=== PATIENT | male | born 1980 | race Caucasian/White ===

== ENCOUNTER 2020-10-12 21:32 | Emergency (ER) | payer OTHER ==
[~2020-10-12] VITALS: Ht 170.2 cm; Wt 52.2 kg
[2020-10-12 22:07] LABS: BASOPHILS % 0.3 % (0.0-1.0); EOSINOPHILS % 0.2 % (0.0-6.0); HEMATOCRIT 27.5 % (38.2-49.6); HEMOGLOBIN 9.1 g/dL (14.0-18.0); LYMPHOCYTES # (AUTO) 0.7 (1.0-3.2); LYMPHOCYTES % 6.7 % (18.0-39.1); MEAN CORPUSCULAR HEMOGLOBIN 29.8 pg (28-32); MEAN CORPUSCULAR HGB CONC 33.1 g/dL (31-35); MEAN CORPUSCULAR VOLUME 90.2 fL (81-99); MONOCYTES # (AUTO) 1.2 (0.2-0.8); MONOCYTES % 11.5 % (4.4-11.3); NEUTROPHILS # (AUTO) 8.3 (2.1-6.9); NEUTROPHILS % 80.7 % (38.7-80.0); PLATELET COUNT 262 x10e3/uL (140-360); RED BLOOD COUNT 3.05 x10e6/uL (4.3-5.7); RED CELL DISTRIBUTION WIDTH 15.9 % (11.7-14.4)
[2020-10-12 22:40] LABS: AMPHETAMINES SCREEN,URINE NEGATIVE (NEGATIVE); BENZODIAZEPINES SCREEN,URINE NEGATIVE (NEGATIVE); CLARITY,URINE CLEAR (CLEAR); COLOR,URINE YELLOW (YELLOW); PHENCYCLIDINE SCREEN,URINE NEGATIVE (NEGATIVE)
[2020-10-12 22:41] LABS: KETONES,URINE NEGATIVE (NEGATIVE); LEUKOCYTE ESTERASE ,URINE 1+ (NEGATIVE); NITRITE,URINE NEGATIVE (NEGATIVE); PROTEIN,URINE DIPSTICK >=300 (NEGATIVE); URINE UROBILINOGEN 0.2 mg/dL (0.2 - 1)
[2020-10-12 22:43] LABS: CREATINE KINASE MB 37.5 ng/mL (0-5.0)
[2020-10-12 22:44] LABS: ANION GAP 28.8 mmol/L (8-16); CALCIUM 7.9 mg/dL (8.4-10.2); CREATININE, SERUM 6.64 mg/dL (0.72-1.25); POTASSIUM 3.8 mmol/L (3.5-5.1)
[2020-10-12] MEDS ORDERED: ASPIRIN 81 MG CHEW TAB PO STA (22:50)
[2020-10-12 22:54] LABS: BACTERIA,URINE MANY /HPF; EPITHELIAL CELLS,URINE MANY /LPF; RBC,URINE >50 /HPF (0-5); WBC,URINE (MAN) >50 /HPF (0-5)
[2020-10-12] MEDS ORDERED: SODIUM CHLORIDE 0.9% 1000ML 1,000 ML IV SCH (23:00)
[2020-10-12] MEDS ORDERED: CLONIDINE HCL 0.1 MG TAB PO ONE (23:45)
[2020-10-13] MEDS ORDERED: CLONIDINE HCL 0.1 MG TAB ONE
[2020-10-13] MEDS ORDERED: CEFTRIAXONE 1 GM VIAL IV ONE (01:30)
[2020-10-13] MEDS ORDERED: CEFTRIAXONE 1 GM in SODIUM CHLORIDE 0.9% 50ML 50 ML IV ONE (01:30)
[2020-10-13 03:05] LABS: CREATINE KINASE MB 18.3 ng/mL (0-5.0)
[2020-10-13 04:34] VITALS: BP 169/113
== END 2020-10-13 04:15 | disposition other institution (70) ==
LOC: ER 21:39
DX: R07.9 Chest pain, unspecified (principal); R77.8 Other specified abnormalities of plasma proteins; N19 Unspecified kidney failure; E46 Unspecified protein-calorie malnutrition; F15.10 Other stimulant abuse, uncomplicated; N39.0 Urinary tract infection, site not specified; I51.7 Cardiomegaly; I50.9 Heart failure, unspecified; J44.9 Chronic obstructive pulmonary disease, unspecified; I10 Essential (primary) hypertension; I25.10 Atherosclerotic heart disease of native coronary artery without angina pectoris; F17.210 Nicotine dependence, cigarettes, uncomplicated; Z20.822 Contact with and (suspected) exposure to COVID-19
CPT/HCPCS: 36415; 51700; 71045; 80048; 80307; 81001; 82550; 82553; 84484; 85025; 93005; 99284; J0696; U0002

== ENCOUNTER 2020-10-27 12:26 | Emergency (ER) | payer OTHER ==
[~2020-10-27] VITALS: Ht 170.2 cm; Wt 52.2 kg
[2020-10-27] MEDS ORDERED: DILTIAZEM HCL 60 MG TAB PO SCH (14:30)
[2020-10-27] MEDS ORDERED: ALBUTEROL/IPRATROPIUM 3 ML NEB NEB ONE (14:30)
[2020-10-27] MEDS ORDERED: DILTIAZEM HCL 60 MG TAB ONE (14:30)
[2020-10-27] MEDS ORDERED: IPRATROPIUM BROMIDE 0.02% 2.5 ML NEB NEB NR (14:31)
[2020-10-27] MEDS ORDERED: LEVALBUTEROL HCL SOLN NEBU 1.25 MG/3 ML NEB INH NR (14:31)
[2020-10-27] MEDS ORDERED: LEVALBUTEROL HCL SOLN NEBU 1.25 MG/3 ML NEB ONE (14:38)
[2020-10-27] MEDS ORDERED: IPRATROPIUM BROMIDE 0.02% 2.5 ML NEB ONE (14:38)
[2020-10-27] MEDS ORDERED: CLONIDINE HCL 0.1 MG TAB PO NR (15:45)
== END 2020-10-27 16:52 | disposition home or self-care (01) ==
LOC: ER 14:20
DX: J44.9 Chronic obstructive pulmonary disease, unspecified (principal); I10 Essential (primary) hypertension; I25.10 Atherosclerotic heart disease of native coronary artery without angina pectoris; K76.9 Liver disease, unspecified; F17.210 Nicotine dependence, cigarettes, uncomplicated
CPT/HCPCS: 94640; 99284

== ENCOUNTER 2021-04-05 17:26 | Inpatient (IN) | payer OTHER ==
[~2021-04-05] VITALS: Ht 170.2 cm; Wt 52.2 kg
[2021-04-05 18:04] LABS: BASOPHILS % 0.3 % (0.0-1.0); EOSINOPHILS # (AUTO) 0.1 (0.0-0.4); EOSINOPHILS % 0.5 % (0.0-6.0); LYMPHOCYTES # (AUTO) 0.6 (1.0-3.2); LYMPHOCYTES % 4.6 % (18.0-39.1); MEAN CORPUSCULAR HEMOGLOBIN 32.2 pg (28-32); MEAN CORPUSCULAR HGB CONC 33.7 g/dL (31-35); MEAN CORPUSCULAR VOLUME 95.8 fL (81-99); MONOCYTES # (AUTO) 1.5 (0.2-0.8); MONOCYTES % 11.3 % (4.4-11.3); NEUTROPHILS # (AUTO) 10.7 (2.1-6.9); NEUTROPHILS % 82.8 % (38.7-80.0); PLATELET COUNT 229 x10e3/uL (140-360); RED BLOOD COUNT 2.14 x10e6/uL (4.3-5.7); RED CELL DISTRIBUTION WIDTH 15.1 % (11.7-14.4)
[2021-04-05 18:22] LABS: HEMATOCRIT 20.5 % (38.2-49.6); HEMOGLOBIN 6.9 g/dL (14.0-18.0)
[2021-04-05 18:44] LABS: ALBUMIN/GLOBULIN RATIO 0.8 (0.8-2.0); ANION GAP 26.9 mmol/L (8-16); CREATININE, SERUM 8.15 mg/dL (0.72-1.25); POTASSIUM 3.9 mmol/L (3.5-5.1)
[2021-04-05 18:50] LABS: CREATINE KINASE MB 9.6 ng/mL (0-5.0)
[2021-04-05 19:21] LABS: EOSINOPHILS % (MANUAL) 1 % (0-7); LYMPHOCYTES % (MANUAL) 7 % (19-48); MONOCYTES % (MANUAL) 11 % (3.4-9.0); NEUTROPHILS % (MANUAL) 81 % (40-74)
[2021-04-05 19:22] LABS: PLATELET MORPHOLOGY COMMENT NORMAL
[2021-04-05 19:23] LABS: PLATELET ESTIMATE ADEQUATE; RBC MORPHOLOGY COMMENT NORMAL; ROULEAU MODERATE
[2021-04-05] MEDS ORDERED: ONDANSETRON HCL INJ 2MG/ML 2ML 2 MG/ML VIAL IV STA (19:38)
[2021-04-05] MEDS ORDERED: Morphine 4mg Syringe 4 MG/ML INJ IV ONE (19:45)
[2021-04-05] MEDS ORDERED: ONDANSETRON HCL INJ 2MG/ML 2ML 2 MG/ML VIAL IV PRN (20:00)
[2021-04-05] MEDS ORDERED: DEXTROSE 50% SYRINGE 50 ML IV PRN (20:00)
[2021-04-05] MEDS ORDERED: SODIUM CHLORIDE FLUSH 10 ML SYR INJ PRN (20:00)
[2021-04-05] MEDS ORDERED: SODIUM CHLORIDE 0.9% 250ML 250 ML IV ONE (20:00)
[2021-04-05] MEDS ORDERED: Morphine 4mg Syringe 4 MG/ML INJ IV PRN (20:15)
[2021-04-05] MEDS: INSULIN REGULAR, HUMAN 100 UNIT/1 ML SQ SCH (21:00)
[2021-04-05 21:19] LABS: CLARITY,URINE HAZY (CLEAR); COLOR,URINE YELLOW (YELLOW); KETONES,URINE NEGATIVE (NEGATIVE); LEUKOCYTE ESTERASE ,URINE NEGATIVE (NEGATIVE); NITRITE,URINE NEGATIVE (NEGATIVE); PROTEIN,URINE DIPSTICK >=300 (NEGATIVE)
[2021-04-05 21:20] LABS: URINE UROBILINOGEN 0.2 mg/dL (0.2 - 1)
[2021-04-05 21:23] LABS: AMPHETAMINES SCREEN,URINE POSITIVE (NEGATIVE); PHENCYCLIDINE SCREEN,URINE NEGATIVE (NEGATIVE)
[2021-04-05 21:24] VITALS: BP 176/102
[2021-04-05 21:24] LABS: BACTERIA,URINE FEW /HPF; BENZODIAZEPINES SCREEN,URINE NEGATIVE (NEGATIVE); EPITHELIAL CELLS,URINE FEW /LPF
[2021-04-05 21:30] VITALS: BP 176/102
[2021-04-05] MEDS ORDERED: NIFEDIPINE CR 30 MG TAB PO ONE (22:15)
[2021-04-06] VITALS (10 sets, daily range): BP systolic 120–177; BP diastolic 71–107
[2021-04-06 01:11] LABS: CREATINE KINASE MB 9.4 ng/mL (0-5.0)
[2021-04-06] MEDS ORDERED: POTASSIUM CHLORIDE 20 MEQ TAB CR PO PRN (01:45)
[2021-04-06] MEDS ORDERED: FUROSEMIDE INJ 10 MG/ML 10 ML VIAL IV ONE (01:45)
[2021-04-06] MEDS ORDERED: ACETAMINOPHEN 325 MG TAB PO PRN (01:45)
[2021-04-06] MEDS ORDERED: BENZONATATE 100 MG CAP PO PRN (01:45)
[2021-04-06] MEDS ORDERED: ONDANSETRON HCL INJ 2MG/ML 2ML 2 MG/ML VIAL IV PRN (01:45)
[2021-04-06] MEDS ORDERED: DEXTROSE 50% SYRINGE 50 ML IV PRN (01:45)
[2021-04-06] MEDS ORDERED: DOCUSATE SODIUM 100 MG CAP PO PRN (01:45)
[2021-04-06] MEDS ORDERED: SIMETHICONE 80 MG CHEW PO PRN (01:45)
[2021-04-06] MEDS ORDERED: MELATONIN 5 MG TABLET PO PRN (01:45)
[2021-04-06] MEDS ORDERED: LIDOCAINE 4% PATCH TP PRN (01:45)
[2021-04-06] MEDS ORDERED: FUROSEMIDE INJ 100 MG in SODIUM CHLORIDE 0.9% 100 ML IV STA (02:13)
[2021-04-06] MEDS: CARVEDILOL 3.125 MG TAB PO SCH ×3 (02:25→16:32)
[2021-04-06] MEDS: Morphine 2mg Syringe 2 MG/ML SYR IV PRN ×3 (02:26→09:57)
[2021-04-06] MEDS ORDERED: SODIUM CHLORIDE 0.9% 100 ML ONE (02:30)
[2021-04-06] MEDS: HYDRALAZINE HCL 20 MG/ML VIAL IV PRN (05:30)
[2021-04-06 06:03] LABS: BASOPHILS # (AUTO) 0.1 (0.0-0.1); BASOPHILS % 0.4 % (0.0-1.0); EOSINOPHILS # (AUTO) 0.4 (0.0-0.4); EOSINOPHILS % 2.8 % (0.0-6.0); HEMATOCRIT 21.5 % (38.2-49.6); LYMPHOCYTES # (AUTO) 0.9 (1.0-3.2); LYMPHOCYTES % 6.3 % (18.0-39.1); MEAN CORPUSCULAR HEMOGLOBIN 31.4 pg (28-32); MEAN CORPUSCULAR HGB CONC 32.6 g/dL (31-35); MEAN CORPUSCULAR VOLUME 96.4 fL (81-99); MONOCYTES # (AUTO) 1.3 (0.2-0.8); MONOCYTES % 9.1 % (4.4-11.3); NEUTROPHILS # (AUTO) 11.2 (2.1-6.9); PLATELET COUNT 259 x10e3/uL (140-360); RED BLOOD COUNT 2.23 x10e6/uL (4.3-5.7); RED CELL DISTRIBUTION WIDTH 14.6 % (11.7-14.4)
[2021-04-06 06:22] LABS: CREATINE KINASE MB 10.7 ng/mL (0-5.0)
[2021-04-06 06:43] LABS: ALBUMIN 2.8 g/dL (3.5-5.0); ALBUMIN/GLOBULIN RATIO 0.7 (0.8-2.0); ANION GAP 25.6 mmol/L (8-16); CALCIUM 9.3 mg/dL (8.4-10.2); CREATININE, SERUM 8.12 mg/dL (0.72-1.25); POTASSIUM 3.6 mmol/L (3.5-5.1)
[2021-04-06] MEDS: INSULIN REGULAR, HUMAN 100 UNIT/1 ML SQ SCH ×4 (07:30→21:00)
[2021-04-06 08:29] LABS: INR 1.21; PROTHROMBIN TIME 16.3 seconds (11.9-14.5)
[2021-04-06 08:30] LABS: PARTIAL THROMBOPLASTIN TIME 38.5 seconds (23.8-35.5)
[2021-04-06] MEDS: ASPIRIN 325 MG TAB EC PO SCH (09:56)
[2021-04-06] MEDS: PANTOPRAZOLE SOD 40 MG TABEC PO SCH (09:56)
[2021-04-06 10:28] LABS: FERRITIN 326.69 ng/mL (21.81-274.66)
[2021-04-06] MEDS ORDERED: SODIUM CHLORIDE 0.9% 1000ML 1,000 ML ONE (11:14)
[2021-04-06] MEDS ORDERED: ALBUMIN 25% 12.5GM 0.25 GM/ML BTL IV PRN (11:45)
[2021-04-06] MEDS ORDERED: SODIUM CHLORIDE 0.9% 500ML 500 ML ONE (11:53)
[2021-04-06 13:22] LABS: CREATINE KINASE MB 14.3 ng/mL (0-5.0)
[2021-04-06] MEDS: NIFEDIPINE CR 30 MG TAB PO SCH (16:32)
[2021-04-06] MEDS: TRAMADOL HCL 50 MG TAB PO PRN ×2 (16:36→22:00)
[2021-04-06] MEDS: EPOETIN ALFA-EPBX 10,000 UNIT/ML VIAL SC SCH (16:43)
[2021-04-06] MEDS ORDERED: ONDANSETRON HCL 4 MG ORAL DISINTEGRATING TAB PO PRN (17:00)
[2021-04-07] VITALS (8 sets, daily range): BP systolic 107–150; BP diastolic 50–88
[2021-04-07] MEDS: TRAMADOL HCL 50 MG TAB PO PRN ×2 (04:19→17:00)
[2021-04-07 06:10] LABS: BASOPHILS # (AUTO) 0.1 (0.0-0.1); BASOPHILS % 0.6 % (0.0-1.0); EOSINOPHILS # (AUTO) 0.8 (0.0-0.4); EOSINOPHILS % 7.6 % (0.0-6.0); HEMATOCRIT 29.3 % (38.2-49.6); HEMOGLOBIN 9.6 g/dL (14.0-18.0); LYMPHOCYTES # (AUTO) 0.6 (1.0-3.2); LYMPHOCYTES % 5.6 % (18.0-39.1); MEAN CORPUSCULAR HEMOGLOBIN 30.3 pg (28-32); MEAN CORPUSCULAR HGB CONC 32.8 g/dL (31-35); MEAN CORPUSCULAR VOLUME 92.4 fL (81-99); MONOCYTES # (AUTO) 1.3 (0.2-0.8); MONOCYTES % 11.9 % (4.4-11.3); NEUTROPHILS # (AUTO) 7.9 (2.1-6.9); PLATELET COUNT 215 x10e3/uL (140-360); RED BLOOD COUNT 3.17 x10e6/uL (4.3-5.7); RED CELL DISTRIBUTION WIDTH 17.2 % (11.7-14.4)
[2021-04-07 06:35] LABS: ALBUMIN 2.7 g/dL (3.5-5.0); ALBUMIN/GLOBULIN RATIO 0.7 (0.8-2.0); ANION GAP 21.5 mmol/L (8-16); CALCIUM 9.5 mg/dL (8.4-10.2); CHOL/HDL RATIO 2.5 (3.9-4.7); CREATININE, SERUM 5.73 mg/dL (0.72-1.25); MAGNESIUM 2.4 MG/DL (1.3-2.1); PHOSPHORUS 10.5 MG/DL (2.3-4.7); POTASSIUM 3.5 mmol/L (3.5-5.1)
[2021-04-07 06:50] LABS: THYROID STIMULATING HORMONE 0.849 uIU/mL (0.350-4.940)
[2021-04-07] MEDS: INSULIN REGULAR, HUMAN 100 UNIT/1 ML SQ SCH ×4 (07:30→21:00)
[2021-04-07] MEDS: PANTOPRAZOLE SOD 40 MG TABEC PO SCH (08:30)
[2021-04-07] MEDS: CARVEDILOL 3.125 MG TAB PO SCH ×2 (09:02→17:08)
[2021-04-07] MEDS: ASPIRIN 325 MG TAB EC PO SCH (09:02)
[2021-04-07] MEDS: NIFEDIPINE CR 30 MG TAB PO SCH (09:03)
[2021-04-07] MEDS ORDERED: SODIUM CHLORIDE 0.9% 1000ML 1,000 ML ONE (10:53)
[2021-04-07] MEDS: EPOETIN ALFA-EPBX 10,000 UNIT/ML VIAL SC SCH (17:08)
[2021-04-08] VITALS (10 sets, daily range): BP systolic 114–198; BP diastolic 70–133
[2021-04-08] MEDS: TRAMADOL HCL 50 MG TAB PO PRN ×4 (00:01→21:05)
[2021-04-08 06:08] LABS: BASOPHILS # (AUTO) 0.1 (0.0-0.1); BASOPHILS % 0.5 % (0.0-1.0); EOSINOPHILS # (AUTO) 0.5 (0.0-0.4); EOSINOPHILS % 4.9 % (0.0-6.0); HEMATOCRIT 26.9 % (38.2-49.6); HEMOGLOBIN 8.9 g/dL (14.0-18.0); LYMPHOCYTES # (AUTO) 0.8 (1.0-3.2); LYMPHOCYTES % 8.1 % (18.0-39.1); MEAN CORPUSCULAR HEMOGLOBIN 30.6 pg (28-32); MEAN CORPUSCULAR HGB CONC 33.1 g/dL (31-35); MEAN CORPUSCULAR VOLUME 92.4 fL (81-99); MONOCYTES # (AUTO) 1.3 (0.2-0.8); MONOCYTES % 13.7 % (4.4-11.3); NEUTROPHILS # (AUTO) 6.8 (2.1-6.9); NEUTROPHILS % 72.4 % (38.7-80.0); PLATELET COUNT 222 x10e3/uL (140-360); RED BLOOD COUNT 2.91 x10e6/uL (4.3-5.7); RED CELL DISTRIBUTION WIDTH 16.2 % (11.7-14.4)
[2021-04-08 06:33] LABS: ANION GAP 19.7 mmol/L (8-16); CALCIUM 9.2 mg/dL (8.4-10.2); CREATININE, SERUM 4.53 mg/dL (0.72-1.25); PHOSPHORUS 8.2 MG/DL (2.3-4.7); POTASSIUM 3.7 mmol/L (3.5-5.1)
[2021-04-08] MEDS: INSULIN REGULAR, HUMAN 100 UNIT/1 ML SQ SCH ×4 (07:30→20:15)
[2021-04-08] MEDS: PANTOPRAZOLE SOD 40 MG TABEC PO SCH (08:21)
[2021-04-08] MEDS: ASPIRIN 325 MG TAB EC PO SCH (09:00)
[2021-04-08] MEDS: CARVEDILOL 3.125 MG TAB PO SCH ×2 (09:00→16:00)
[2021-04-08] MEDS: NIFEDIPINE CR 30 MG TAB PO SCH (09:00)
[2021-04-08] MEDS: HYDRALAZINE HCL 20 MG/ML VIAL IV PRN (15:22)
[2021-04-08] MEDS: ALBUTEROL/IPRATROPIUM 3 ML NEB NEB PRN (16:20)
[2021-04-08] MEDS: ACETAMINOPHEN/CODEINE 300MG - 30MG TAB PO PRN (20:19)
[2021-04-09] VITALS (8 sets, daily range): BP systolic 147–181; BP diastolic 88–109
[2021-04-09] MEDS: ACETAMINOPHEN/CODEINE 300MG - 30MG TAB PO PRN ×2 (06:04)
[2021-04-09 07:00] LABS: ANION GAP 24.7 mmol/L (8-16); CALCIUM 9.3 mg/dL (8.4-10.2); CREATININE, SERUM 5.24 mg/dL (0.72-1.25); POTASSIUM 3.7 mmol/L (3.5-5.1)
[2021-04-09] MEDS: INSULIN REGULAR, HUMAN 100 UNIT/1 ML SQ SCH ×4 (07:30→20:22)
[2021-04-09] MEDS: PANTOPRAZOLE SOD 40 MG TABEC PO SCH (07:53)
[2021-04-09] MEDS: ASPIRIN 325 MG TAB EC PO SCH (08:39)
[2021-04-09] MEDS: CARVEDILOL 3.125 MG TAB PO SCH ×2 (08:39→17:38)
[2021-04-09] MEDS: NIFEDIPINE CR 30 MG TAB PO SCH (08:40)
[2021-04-09] MEDS ORDERED: SODIUM CHLORIDE 0.9% 1000ML 2,000 ML IV PRN (08:45)
[2021-04-09] MEDS ORDERED: SODIUM CHLORIDE 0.9% 1000ML 1,000 ML ONE (08:53)
[2021-04-09] MEDS: HYDROCODONE/APAP 5MG-325MG TAB PO PRN (10:02)
[2021-04-09] MEDS: EPOETIN ALFA-EPBX 10,000 UNIT/ML VIAL SC SCH (14:04)
[2021-04-09] MEDS ORDERED: LORAZEPAM 1 MG TAB PO PRN (20:30)
[2021-04-09] MEDS ORDERED: NICOTINE 21 MG/EA PATCH TOP PRN (20:30)
[2021-04-09] MEDS: NICOTINE 21 MG/EA PATCH TOP PRN (21:00)
[2021-04-09] MEDS: LORAZEPAM 1 MG TAB PO PRN (21:00)
[2021-04-10] VITALS (9 sets, daily range): BP systolic 103–189; BP diastolic 79–111
[2021-04-10] MEDS: HYDRALAZINE HCL 20 MG/ML VIAL IV PRN ×2 (05:11→12:02)
[2021-04-10] MEDS: HYDROCODONE/APAP 5MG-325MG TAB PO PRN ×4 (05:53→23:18)
[2021-04-10] MEDS: INSULIN REGULAR, HUMAN 100 UNIT/1 ML SQ SCH ×4 (07:30→20:57)
[2021-04-10] MEDS: PANTOPRAZOLE SOD 40 MG TABEC PO SCH (07:38)
[2021-04-10] MEDS: ASPIRIN 325 MG TAB EC PO SCH (08:52)
[2021-04-10] MEDS: NIFEDIPINE CR 30 MG TAB PO SCH (08:52)
[2021-04-10] MEDS: CARVEDILOL 3.125 MG TAB PO SCH ×2 (08:52→16:45)
[2021-04-10] MEDS: TRAMADOL HCL 50 MG TAB PO PRN (20:54)
[2021-04-10] MEDS: LORAZEPAM 1 MG TAB PO PRN (20:54)
[2021-04-10] MEDS: NICOTINE 21 MG/EA PATCH TOP PRN (22:49)
[2021-04-11] VITALS (9 sets, daily range): BP systolic 112–173; BP diastolic 76–97
[2021-04-11] MEDS: INSULIN REGULAR, HUMAN 100 UNIT/1 ML SQ SCH ×4 (07:30→20:39)
[2021-04-11] MEDS: HYDROCODONE/APAP 5MG-325MG TAB PO PRN (07:35)
[2021-04-11] MEDS: EPOETIN ALFA-EPBX 10,000 UNIT/ML VIAL SC SCH (09:00)
[2021-04-11] MEDS: PANTOPRAZOLE SOD 40 MG TABEC PO SCH (09:00)
[2021-04-11] MEDS: ASPIRIN 81 MG ENTERIC COATED PO SCH (09:00)
[2021-04-11] MEDS: HYDRALAZINE HCL 20 MG/ML VIAL IV PRN (09:00)
[2021-04-11] MEDS: CARVEDILOL 3.125 MG TAB PO SCH (09:00)
[2021-04-11] MEDS: NIFEDIPINE CR 30 MG TAB PO SCH (09:00)
[2021-04-11 15:35] LABS: ANION GAP 22.3 mmol/L (8-16); CALCIUM 9.2 mg/dL (8.4-10.2); CREATININE, SERUM 5.62 mg/dL (0.72-1.25); POTASSIUM 3.3 mmol/L (3.5-5.1)
[2021-04-11] MEDS: CARVEDILOL 12.5 MG TAB PO SCH (15:55)
[2021-04-11] MEDS ORDERED: HEPARIN SOD (PORCINE) 1000 UNIT/ML SDV IV PRN (16:45)
[2021-04-11] MEDS ORDERED: CARVEDILOL 12.5 MG TAB PO SCH (17:00)
[2021-04-11] MEDS ORDERED: POTASSIUM CHLORIDE 20 MEQ TAB CR PO ONE (18:00)
[2021-04-11] MEDS: DIPHENHYDRAMINE HCL 25 MG CAP PO PRN (18:47)
[2021-04-11] MEDS: ALBUTEROL/IPRATROPIUM 3 ML NEB NEB PRN (19:20)
[2021-04-11] MEDS: LORAZEPAM 1 MG TAB PO PRN (22:46)
[2021-04-12] VITALS (11 sets, daily range): BP systolic 106–220; BP diastolic 72–111
[2021-04-12] MEDS: HYDRALAZINE HCL 20 MG/ML VIAL IV PRN (04:33)
[2021-04-12] MEDS: HYDROCODONE/APAP 5MG-325MG TAB PO PRN ×3 (04:33→17:43)
[2021-04-12] MEDS: ALBUTEROL/IPRATROPIUM 3 ML NEB NEB PRN ×4 (04:55→18:40)
[2021-04-12] MEDS ORDERED: LABETALOL HCL 5 MG/ML 20ML VIAL IV STA (05:07)
[2021-04-12] MEDS: NIFEDIPINE CR 30 MG TAB PO SCH (05:18)
[2021-04-12] MEDS: INSULIN REGULAR, HUMAN 100 UNIT/1 ML SQ SCH ×4 (07:30→19:58)
[2021-04-12] MEDS: ASPIRIN 81 MG ENTERIC COATED PO SCH (08:32)
[2021-04-12] MEDS: PANTOPRAZOLE SOD 40 MG TABEC PO SCH (08:32)
[2021-04-12] MEDS: CARVEDILOL 12.5 MG TAB PO SCH ×2 (08:32→16:24)
[2021-04-12] MEDS: TRAMADOL HCL 50 MG TAB PO PRN (19:22)
[2021-04-12] MEDS: LORAZEPAM 1 MG TAB PO PRN (19:55)
[2021-04-12] MEDS: NICOTINE 21 MG/EA PATCH TOP PRN (19:55)
[2021-04-13] VITALS (14 sets, daily range): BP systolic 118–203; BP diastolic 62–123
[2021-04-13] MEDS: ALBUTEROL/IPRATROPIUM 3 ML NEB NEB PRN ×4 (00:50→18:40)
[2021-04-13] MEDS: HYDROCODONE/APAP 5MG-325MG TAB PO PRN ×3 (00:55→19:45)
[2021-04-13] MEDS: DIPHENHYDRAMINE HCL 25 MG CAP PO PRN (01:23)
[2021-04-13] MEDS: HYDRALAZINE HCL 20 MG/ML VIAL IV PRN (01:43)
[2021-04-13] MEDS ORDERED: LABETALOL HCL 5 MG/ML 20ML VIAL IV STA (04:31)
[2021-04-13] MEDS: TRAMADOL HCL 50 MG TAB PO PRN (04:40)
[2021-04-13] MEDS: LORAZEPAM 1 MG TAB PO PRN (04:55)
[2021-04-13] MEDS ORDERED: AZITHROMYCIN 250 MG TAB PO ONE (06:30)
[2021-04-13] MEDS: INSULIN REGULAR, HUMAN 100 UNIT/1 ML SQ SCH ×4 (07:30→21:00)
[2021-04-13] MEDS ORDERED: IPRATROPIUM BROMIDE 0.02% 2.5 ML NEB ONE (07:35)
[2021-04-13] MEDS ORDERED: ALBUTEROL SULF 0.083% NEB SOLN 3 ML NEB ONE (07:35)
[2021-04-13] MEDS: ASPIRIN 81 MG ENTERIC COATED PO SCH (08:23)
[2021-04-13] MEDS: CARVEDILOL 12.5 MG TAB PO SCH ×2 (08:23→17:08)
[2021-04-13] MEDS: NIFEDIPINE CR 30 MG TAB PO SCH (08:23)
[2021-04-13] MEDS: PANTOPRAZOLE SOD 40 MG TABEC PO SCH (08:23)
[2021-04-14] VITALS: BP 147/96
[2021-04-14] MEDS: ALBUTEROL/IPRATROPIUM 3 ML NEB NEB PRN ×4 (00:25→19:00)
[2021-04-14] MEDS ORDERED: SALINE 0.65% NAS SOLN 1 SPRAY BTL PRN (00:45)
[2021-04-14] MEDS: HYDROCODONE/APAP 5MG-325MG TAB PO PRN ×4 (01:52→23:23)
[2021-04-14] MEDS: LORAZEPAM 1 MG TAB PO PRN ×3 (02:04→23:27)
[2021-04-14] MEDS: INSULIN REGULAR, HUMAN 100 UNIT/1 ML SQ SCH ×4 (07:29→20:54)
[2021-04-14] MEDS: PANTOPRAZOLE SOD 40 MG TABEC PO SCH (07:36)
[2021-04-14] MEDS: ASPIRIN 81 MG ENTERIC COATED PO SCH (07:36)
[2021-04-14] MEDS: CARVEDILOL 12.5 MG TAB PO SCH ×2 (07:37→17:04)
[2021-04-14] MEDS: NIFEDIPINE CR 30 MG TAB PO SCH (07:37)
[2021-04-14 07:41] LABS: ANION GAP 23.3 mmol/L (8-16); CALCIUM 8.8 mg/dL (8.4-10.2); CREATININE, SERUM 5.33 mg/dL (0.72-1.25); POTASSIUM 4.3 mmol/L (3.5-5.1)
[2021-04-14] MEDS: NICOTINE 21 MG/EA PATCH TOP PRN ×2 (09:51→11:39)
[2021-04-14 10:11] VITALS: BP 163/142
[2021-04-14 10:12] VITALS: BP 163/142
[2021-04-14 10:13] VITALS: BP 163/142
[2021-04-14] MEDS: HYDRALAZINE HCL 20 MG/ML VIAL IV PRN (10:42)
[2021-04-14] MEDS: HYDRALAZINE HCL 25 MG TAB PO SCH ×2 (15:08→21:03)
[2021-04-14 20:00] VITALS: BP 111/72
[2021-04-14 21:00] VITALS: BP 111/72
[2021-04-15] VITALS (9 sets, daily range): BP systolic 124–194; BP diastolic 76–113
[2021-04-15] MEDS: HYDRALAZINE HCL 20 MG/ML VIAL IV PRN (04:30)
[2021-04-15 05:25] LABS: ANION GAP 21.4 mmol/L (8-16); CALCIUM 8.7 mg/dL (8.4-10.2); CREATININE, SERUM 3.89 mg/dL (0.72-1.25); POTASSIUM 4.4 mmol/L (3.5-5.1)
[2021-04-15] MEDS: HYDROCODONE/APAP 5MG-325MG TAB PO PRN ×2 (05:25→12:01)
[2021-04-15] MEDS: ALBUTEROL/IPRATROPIUM 3 ML NEB NEB PRN ×2 (07:05→13:29)
[2021-04-15] MEDS: INSULIN REGULAR, HUMAN 100 UNIT/1 ML SQ SCH ×3 (07:30→16:06)
[2021-04-15] MEDS: PANTOPRAZOLE SOD 40 MG TABEC PO SCH (08:06)
[2021-04-15] MEDS: HYDRALAZINE HCL 25 MG TAB PO SCH ×2 (08:07→15:00)
[2021-04-15] MEDS: ASPIRIN 81 MG ENTERIC COATED PO SCH (08:07)
[2021-04-15] MEDS: CARVEDILOL 12.5 MG TAB PO SCH (08:07)
[2021-04-15] MEDS: NIFEDIPINE CR 30 MG TAB PO SCH (08:08)
[2021-04-15] MEDS ORDERED: ISOSORBIDE MONONITRATE 30 MG TAB CR PO SCH (09:00)
== END 2021-04-15 17:06 | disposition left against medical advice (07) | DRG 280 ==
LOC: ER 17:58 → ERHOLD 20:52 → MED/SURG3 21:07
PROVIDERS: ADMIT Internal Medicine; ATTEND Internal Medicine
PROC: 5A1D70Z Performance of Urinary Filtration, Intermittent, Less than 6 Hours Per Day (ICD-10-PCS; principal; 2021-04-06)
PROC: 30243N1 Transfusion of Nonautologous Red Blood Cells into Central Vein, Percutaneous Approach (ICD-10-PCS; principal; 2021-04-06)
DX: I13.2 Hypertensive heart and chronic kidney disease with heart failure and with stage 5 chronic kidney disease, or end stage renal disease (principal); I21.A1 Myocardial infarction type 2; N18.6 End stage renal disease; E11.22 Type 2 diabetes mellitus with diabetic chronic kidney disease; I50.22 Chronic systolic (congestive) heart failure; Z99.2 Dependence on renal dialysis; Z79.899 Other long term (current) drug therapy; Z91.19 Patient's noncompliance with other medical treatment and regimen; K76.9 Liver disease, unspecified; D63.1 Anemia in chronic kidney disease; Z91.15 Patient's noncompliance with renal dialysis; F15.10 Other stimulant abuse, uncomplicated; J44.9 Chronic obstructive pulmonary disease, unspecified; Z20.822 Contact with and (suspected) exposure to COVID-19; I16.0 Hypertensive urgency; I25.10 Atherosclerotic heart disease of native coronary artery without angina pectoris
CPT/HCPCS: 36415; 71045; 72050; 72070; 72100; 80048; 80053; 80061; 80307; 81001; 82550; 82553; 82728; 82948; 83036; 83540; 83735; 83880; 83930; 83935; 84100; 84443; 84466; 84484; 85025; 85610; 85730; 86704; 86705; 86706; 86850; 86900; 86920; 87340; 90962; 93005; 93306; 94640; 94799; 96372; 99284; J0360; J1644; J1817; J1940; J2270; J2405; J7030; J7040; J7050; J7799; P9016; Q0162; U0002